=== PATIENT | female | born 1975 | race Caucasian/White ===

== ENCOUNTER 2021-05-03 08:37 | Emergency (ER) | payer MEDICAID ==
[~2021-05-03] VITALS: Ht 165.1 cm; Wt 91.0 kg
[2021-05-03 09:55] LABS: BASOPHILS % 0.3 % (0.0-2.0); EOSINOPHILS % 1.4 % (0.0-5.0); HEMATOCRIT. 37.4 % (36.0-48.0); HEMOGLOBIN. 12.9 g/dL (12.0-16.0); LYMPHOCYTES % 23.9 % (20.0-50.0); MEAN CORPUSCULAR HEMOGLOBIN 32.7 pg (28.0-32.0); MEAN CORPUSCULAR VOLUME 94.5 fL (81.0-99.0); MEAN PLATELET VOLUME 8.3 fl (7.4-10.4); MONOCYTES % 5.5 % (2.0-8.0); NEUTROPHILS % 68.9 % (40.0-76.0); PLATELET 249 x1000/uL (130-400); RED BLOOD CELL COUNT 3.96 mill/uL (4.2-5.4); RED CELL DISTRIBUTION WIDTH 12.8 % (11.6-14.6)
[2021-05-03 10:00] LABS: CHLORIDE 106 mEq/L (98-107)
[2021-05-03] MEDS ORDERED: IOHEXOL-350 100 ML BOTTLE ONE (10:00)
[2021-05-03 10:04] LABS: ETHANOL BLOOD < 10 mg/dL
[2021-05-03 10:18] LABS: CLARITY URINE CLEAR (CLEAR); COLOR URINE YELLOW (YELLOW); KETONES URINE NEGATIVE (NEGATIVE); LEUKOCYTE ESTERASE URINE TRACE (NEGATIVE); NITRITE URINE NEGATIVE (NEGATIVE); OCCULT BLOOD URINE NEGATIVE (NEGATIVE); PROTEIN URINE NEGATIVE (NEGATIVE); SPECIFIC GRAVITY URINE 1.043 (1.005-1.030)
[2021-05-03 10:27] LABS: *BARBITURATES SCREEN URINE NEGATIVE (NEGATIVE); *BENZODIAZEPINES SCREEN URINE NEGATIVE (NEGATIVE)
[2021-05-03 10:28] LABS: *AMPHETAMINES SCREEN URINE NEGATIVE (NEGATIVE); *COCAINE SCREEN URINE NEGATIVE (NEGATIVE); CANNABINOID URINE SCREEN NEGATIVE (NEGATIVE); METHADONE URINE SCREEN NEGATIVE (NEGATIVE); OPIATES URINE SCREEN NEGATIVE (NEGATIVE); PHENCYCLIDINE URINE SCREEN NEGATIVE (NEGATIVE)
[2021-05-03] MEDS ORDERED: VALA10002 MT (17:34)
[2021-05-03] MEDS ORDERED: P50 MT (17:35)
[2021-05-03] MEDS ORDERED: POLY15DR31 LEFTEYE (17:36)
[2021-05-03 17:47] VITALS: BP 135/82
== END 2021-05-03 17:48 | disposition home or self-care (01) ==
LOC: ER 08:37
DX: G51.0 Bell's palsy (principal); R29.810 Facial weakness; I49.8 Other specified cardiac arrhythmias
CPT/HCPCS: 36415; 70450; 70496; 70498; 70551; 71045; 80053; 80305; 80320; 81003; 82962; 83880; 84484; 85025; 93005; 99291; Q9967; G0480